=== PATIENT | male | born 1950 | race Caucasian/White ===

== ENCOUNTER 2016-09-11 08:22 | Outpatient (CLI) | payer BC, OTHER ==
[2016-09-11 12:45] LABS: Hemoglobin A1c 5.2 % (4.0-6.0)
== END 2016-09-11 08:23 ==
LOC: NAVSJIPCSP 08:22
PROVIDERS: ATTEND Internal Medicine
DX: E78.5 Hyperlipidemia, unspecified (principal); E11.9 Type 2 diabetes mellitus without complications
CPT/HCPCS: 36415; 80061; 83036

== ENCOUNTER 2016-10-13 11:29 | Outpatient (CLI) | payer BC ==
[2016-10-13 12:52] LABS: #Basophils 0.1 thou/uL (0.0-0.2); #Eosinphils 0.1 thou/uL (0.0-0.7); #Lymphocytes 2.7 thou/uL (1.20-3.40); #Monocytes 0.7 thou/uL (0.11-0.59); #Neutrophils 6.4 thou/uL (1.40-6.50); %Basophils 0.6 % (0.0-1.0); %Eosinophils 0.7 % (0.0-10.0); %Lymphocytes 27.2 % (21.0-51.0); %Monocytes 6.9 % (0.0-10.0); %Neutrophils 64.6 % (42.0-75.0); Hemoglobin 14.7 g/dL (14.0-18.0); Mean Corpuscular HGB CONC 32.9 g/dL (32.0-36.0); Mean Corpuscular Hemoglobin 29.7 pg (27.0-31.0); Mean Corpuscular Volume 90.4 fl (80.0-94.0); Mean Platelet Volume 5.5 fL (7.4-10.4); Platelet Count 231 thou/uL (130-400); Red Blood Cell (RBC) Count 4.94 mill/uL (4.70-6.10)
[2016-10-13 13:16] LABS: ALT (SGPT) 22 U/L (0-55); AST (SGOT) 38 U/L (5-34); Alkaline Phosphatase 75 U/L (40-150); Anion Gap 16 mmol/L (10-20); BUN (Urea Nitrogen) 16 mg/dL (8.4-25.7); Calc. Creatinine Clearance 0 mL/min (70-130); Calcium 9.2 mg/dL (7.8-10.44); Carbon Dioxide 23 mmol/L (23-31); Chloride 105 mmol/L (98-107); Estimated GFR-MDRD Greater than 90; Globulin 2.6 g/dL (2.4-3.5); Glucose 87 mg/dL (80-115); Potassium 4.6 mmol/L (3.5-5.1); Protein, Total 6.6 g/dL (5.8-8.1); Sodium 139 mmol/L (136-145)
== END 2016-10-13 11:30 ==
LOC: NAVSJIPCSP 11:29
PROVIDERS: ATTEND Internal Medicine
DX: M79.1 Myalgia (principal)
CPT/HCPCS: 36415; 80053; 84443; 85025

== ENCOUNTER 2016-12-04 08:58 | Outpatient (CLI) | payer BC ==
[2016-12-04 12:29] LABS: Hemoglobin A1c 5.4 % (4.0-6.0)
== END 2016-12-04 08:59 ==
LOC: NAVSJIPCSP 08:58
PROVIDERS: ATTEND Internal Medicine
DX: E78.5 Hyperlipidemia, unspecified (principal); E11.9 Type 2 diabetes mellitus without complications
CPT/HCPCS: 36415; 80061; 83036

== ENCOUNTER 2017-03-09 09:18 | Outpatient (CLI) | payer BC ==
[2017-03-09 12:53] LABS: Hemoglobin A1c 5.4 % (4.0-6.0)
[2017-03-09 13:16] LABS: Cardiac Risk 4.9 (Less than 4.5)
== END 2017-03-09 09:19 | disposition home or self-care (01) ==
LOC: NAVSJIPCSP 09:18
PROVIDERS: ATTEND Internal Medicine
DX: E78.5 Hyperlipidemia, unspecified (principal); E11.9 Type 2 diabetes mellitus without complications
CPT/HCPCS: 36415; 80061; 83036

== ENCOUNTER 2017-06-15 11:34 | Outpatient (CLI) | payer BC ==
--- NOTE | 2017-06-15 13:04 | RAD ---
LEFT HIP THREE VIEWS: HISTORY: Left hip pain. FINDINGS/IMPRESSION: Mild degenerative change is present. No fracture, dislocation, or bony destruction is identified. POS: [facility]
--- NOTE | 2017-06-15 14:38 | RAD ---
LUMBAR SPINE THREE VIEWS: HISTORY: Low back pain. Hip pain. FINDINGS: There are degenerative changes in the lumbar spine with mild levoscoliosis. There is grade I anterol isthesis of L4 over L5 vertebral bodies. No compression fracture or bony destruction is identified. IMPRESSION: 1. Lumbar spondylosis with mild levoscoliosis. 2. Grade I anterolisthesis of L4 over L5. POS: [facility]
--- NOTE | 2017-06-15 15:00 | RAD ---
THREE VIEWS OF THE SACROILIAC JOINTS: 06/15/2017 HISTORY: Low back pain and hip pain. FINDINGS: There is no widening of the sacroiliac joints or pubic symphysis. There is mild bilateral hip degene rative change, left greater than right. There is no erosive change involving either sacroiliac joint . There is no acute fracture or dislocation. There is lower lumbar spine degenerative change, incom pletely assessed on this exam. IMPRESSION: Osteoarthritic changes as detailed above. No acute osseous abnormality. POS: [facility]
--- NOTE | 2017-06-16 14:08 | RAD ---
RIGHT HIP 2 VIEWS: Date: 06/15/17 HISTORY: Pain. COMPARISON: None. FINDINGS: No fracture. No malalignment. Moderate narrowing. There is mild enthesopathic change of greater troch anter. Visualized portions of right obturator ring is intact. IMPRESSION: Mild degenerative changes. POS: [facility]
== END 2017-06-15 11:35 | disposition home or self-care (01) ==
LOC: NAV RAD 11:34
PROVIDERS: ATTEND Internal Medicine
DX: M25.551 Pain in right hip (principal); M25.552 Pain in left hip; M54.5 Low back pain; M16.0 Bilateral primary osteoarthritis of hip; M47.816 Spondylosis without myelopathy or radiculopathy, lumbar region; M41.86 Other forms of scoliosis, lumbar region; M43.16 Spondylolisthesis, lumbar region
CPT/HCPCS: 72100; 72202